=== PATIENT | male | born 1975 | race Caucasian/White ===

== ENCOUNTER 2017-10-06 12:10 | Observation (INO) ==
[2017-10-06] MEDS ORDERED: METOPROLOL TARTRATE 5 MG/5 ML VIAL IV STA (12:43)
[2017-10-06] MEDS ORDERED: ASPIRIN 325 MG TABLET PO STA (12:43)
[2017-10-06 13:00] LABS: Basophils # 0.2 10*3/uL (0.0-0.2); Basophils % 1.6 % (0.0-0.8); Eosinophils # 0.7 10*3/uL (0.0-0.87); Eosinophils % 6.8 % (0.00-10.9); Hematocrit 43.3 VOL% (42.0-52.0); Hemoglobin 14.8 GM/DL (14.0-18.0); Immature Granulocytes % 0.3 %; Immature Granulocytes Absolute 0.03 #; Lymphocytes # 4.9 10*3/uL (1.4-4.0); Lymphocytes % 45.9 % (21.2-54.2); Mean Corpuscular HGB Conc 34.2 GM/DL (32-36); Mean Corpuscular Hemoglobin 30 PG (27-34); Mean Corpuscular Volume 86.9 FL (87-102); Mean Platelet Volume 10.3 FL (9.6-12.0); Monocytes % 9.1 % (1.7-12.7); Neutrophils # 3.9 10*3/uL (1.4-7.4); Neutrophils % 36.3 % (38.7-73.9); Platelet Count 381 T/CUMM (130-400); Red Blood Count 4.98 MC/CUMM (3.8-5.5); Red Cell Distribution Width 13.1 % (9.3-17.3); White Blood Count 10.8 T/CUMM (4-12)
[2017-10-06 13:03] LABS: PT Patient Result 10.4 SECS; Partial Thromboplastin Time 25.7 SECS (0-40)
[2017-10-06 13:09] LABS: Albumin 4.3 G/DL (3.4-5.0); Bilirubin,Total 0.6 MG/DL (0.2-1.0); Calcium 8.9 MG/DL (8.5-10.1); Osmolality,Calculated 279.4 MOS/KG (273-304); Potassium 3.8 MMOL/L (3.5-5.1); Total Protein 7.6 G/DL (6.4-8.3)
[2017-10-06 13:32] LABS: Eosinophils 6 % (0-10); Lymphocytes 44 % (20-55); Segmented Neutrophils 41 % (50-85); Total Cells Counted 100
[2017-10-06] MEDS ORDERED: guaiFENesin/DM ER 600-30 MG TABLET PO PRN (13:35)
[2017-10-06] MEDS ORDERED: ACETAMINOPHEN 325 MG TABLET PO PRN (13:35)
[2017-10-06] MEDS ORDERED: ONDANSETRON 4 MG/2 ML VIAL IV PRN (13:35)
[2017-10-06] MEDS ORDERED: diphenhydrAMINE CAP 25 MG CAPSULE PO PRN (13:35)
[2017-10-06] MEDS ORDERED: ENOXAPARIN 40 MG/0.4 ML SYRINGE SUBCUT SCH (14:00)
[2017-10-06] MEDS ORDERED: MELOXICAM 7.5 MG TABLET PO PRN (15:00)
[2017-10-06] MEDS ORDERED: CARVEDILOL 3.125 MG TABLET PO SCH (17:00)
[2017-10-06] MEDS: SODIUM CHLORIDE 0.45% 1,000 ML IV SCH (17:16)
[2017-10-06] MEDS: ENOXAPARIN 120 MG/0.8 ML SYRINGE SUBCUT SCH (17:17)
[2017-10-06] MEDS: PANTOPRAZOLE 40 MG TABLET PO SCH (17:17)
[2017-10-06] MEDS: CARVEDILOL 6.25 MG TABLET PO SCH (17:17)
[2017-10-07] MEDS: SODIUM CHLORIDE 0.45% 1,000 ML IV SCH ×3 (03:22→13:21)
[2017-10-07 03:33] LABS: Basophils # 0.2 10*3/uL (0.0-0.2); Basophils % 1.3 % (0.0-0.8); Eosinophils # 0.8 10*3/uL (0.0-0.87); Eosinophils % 6.8 % (0.00-10.9); Hematocrit 40.9 VOL% (42.0-52.0); Hemoglobin 14.4 GM/DL (14.0-18.0); Immature Granulocytes % 0.3 %; Immature Granulocytes Absolute 0.04 #; Lymphocytes # 6.2 10*3/uL (1.4-4.0); Lymphocytes % 51.8 % (21.2-54.2); Mean Corpuscular HGB Conc 35.2 GM/DL (32-36); Mean Corpuscular Hemoglobin 30 PG (27-34); Mean Corpuscular Volume 86.3 FL (87-102); Mean Platelet Volume 10.2 FL (9.6-12.0); Monocytes # 0.9 10*3/uL (0.11-0.8); Monocytes % 7.7 % (1.7-12.7); Neutrophils # 3.8 10*3/uL (1.4-7.4); Neutrophils % 32.1 % (38.7-73.9); Platelet Count 343 T/CUMM (130-400); Red Blood Count 4.74 MC/CUMM (3.8-5.5); Red Cell Distribution Width 12.9 % (9.3-17.3)
[2017-10-07 04:07] LABS: Calcium 8.4 MG/DL (8.5-10.1); Osmolality,Calculated 280.4 MOS/KG (273-304); Potassium 3.5 MMOL/L (3.5-5.1); Risk Ratio 6.36; Thyroid Stimulating Hormone 1.85 uIU/ml (0.358-3.74); VLDL CHOLESTEROL 126.6 MG/DL
[2017-10-07 04:43] LABS: Band Neutrophils 7 % (0-10); Eosinophils 6 % (0-10); Lymphocytes 31 % (20-55); Segmented Neutrophils 51 % (50-85); Total Cells Counted 100
[2017-10-07] MEDS: ENOXAPARIN 120 MG/0.8 ML SYRINGE SUBCUT SCH ×2 (05:59→17:01)
[2017-10-07] MEDS: hydroCHLOROthiazide 25 MG TABLET PO SCH (08:51)
[2017-10-07] MEDS: MULTIVITAMIN (CENTRUM) TABLET PO SCH (08:52)
[2017-10-07] MEDS: CARVEDILOL 6.25 MG TABLET PO SCH ×2 (08:52→17:01)
[2017-10-07] MEDS: LOSARTAN 25 MG TABLET PO SCH (08:52)
[2017-10-07] MEDS: TOPIRAMATE 100 MG TABLET PO SCH (08:52)
[2017-10-07] MEDS: FLUTICASONE 50 MCG NASAL SPRAY 16 GM BOTTLE BOTH NARES SCH (08:52)
[2017-10-07] MEDS: ASPIRIN EC 81 MG TABLET PO SCH (08:52)
[2017-10-07] MEDS: AZELASTINE NASAL 137 MCG/SPRAY 30 ML BOTTLE BOTH NARES SCH (08:52)
[2017-10-07] MEDS: amLODIPine 5 MG TABLET PO SCH (08:52)
[2017-10-07] MEDS: PANTOPRAZOLE 40 MG TABLET PO SCH (08:52)
[2017-10-07] MEDS ORDERED: amLODIPine 10 MG TABLET PO SCH (09:00)
[2017-10-07] MEDS ORDERED: CETIRIZINE 10 MG TABLET PO SCH (09:00)
[2017-10-07] MEDS ORDERED: MAGNESIUM SULF RIDER 2 GM in PREMIX 1 EACH IV PRN (09:16)
[2017-10-07] MEDS ORDERED: POTASSIUM CHLORIDE RIDER 10 MEQ in PREMIX 1 EACH IV PRN (09:16)
[2017-10-07 10:13] LABS: Apearance,Urine CLEAR (Clear); Bacteria,Urine Occasional /HPF (Few); Bilirubin,Urine Negative (Negative); Blood, Urine Negative (Negative); Glucose,Urine (UA) Negative (Negative); Ketones,Urine Negative (Negative); Nitrite,Urine Negative (Negative); Protein,Urine Negative; Urine Color Yellow (Yellow); Urine Specific Gravity 1.006 (1.001-1.035); Urine Urobilinogen < 2.0 EU/DL (0.2-1.0)
[2017-10-07] MEDS ORDERED: PRAVASTATIN 20 MG TABLET PO SCH (10:30)
[2017-10-07] MEDS: OMEGA 3 ACID ETHYL ESTERS 1 GM CAPSULE PO SCH (10:50)
[2017-10-07] MEDS: PRAVASTATIN 40 MG TABLET PO SCH (10:50)
[2017-10-08] MEDS: SODIUM CHLORIDE 0.45% 1,000 ML IV SCH (01:54)
[2017-10-08 06:26] LABS: Basophils # 0.1 10*3/uL (0.0-0.2); Basophils % 1.3 % (0.0-0.8); Eosinophils # 0.8 10*3/uL (0.0-0.87); Eosinophils % 7.2 % (0.00-10.9); Hematocrit 42.3 VOL% (42.0-52.0); Hemoglobin 14.6 GM/DL (14.0-18.0); Immature Granulocytes % 0.4 %; Immature Granulocytes Absolute 0.04 #; Lymphocytes # 5.2 10*3/uL (1.4-4.0); Lymphocytes % 48.2 % (21.2-54.2); Mean Corpuscular HGB Conc 34.5 GM/DL (32-36); Mean Corpuscular Hemoglobin 30 PG (27-34); Mean Corpuscular Volume 87.9 FL (87-102); Mean Platelet Volume 10.4 FL (9.6-12.0); Monocytes % 9.3 % (1.7-12.7); Neutrophils # 3.6 10*3/uL (1.4-7.4); Neutrophils % 33.6 % (38.7-73.9); Platelet Count 346 T/CUMM (130-400); Red Blood Count 4.81 MC/CUMM (3.8-5.5); Red Cell Distribution Width 12.9 % (9.3-17.3); White Blood Count 10.7 T/CUMM (4-12)
[2017-10-08 06:43] LABS: Calcium 8.6 MG/DL (8.5-10.1); Osmolality,Calculated 279.4 MOS/KG (273-304); Potassium 3.7 MMOL/L (3.5-5.1)
[2017-10-08 06:49] LABS: Band Neutrophils 2 % (0-10); Eosinophils 10 % (0-10); Hypochromasia 1+; Lymphocytes 40 % (20-55); Platelet Estimate Adequate; Segmented Neutrophils 43 % (50-85); Total Cells Counted 100
[2017-10-08 06:50] LABS: Atypical Lymphocytes Few
[2017-10-08] MEDS ORDERED: DIAZEPAM 5 MG TABLET PO ONE (07:00)
[2017-10-08] MEDS ORDERED: diphenhydrAMINE CAP 25 MG CAPSULE PO ONE (07:00)
[2017-10-08] MEDS: ENOXAPARIN 120 MG/0.8 ML SYRINGE SUBCUT SCH (07:07)
[2017-10-08] MEDS: LOSARTAN 25 MG TABLET PO SCH (09:03)
[2017-10-08] MEDS: hydroCHLOROthiazide 25 MG TABLET PO SCH (09:03)
[2017-10-08] MEDS: MULTIVITAMIN (CENTRUM) TABLET PO SCH (09:03)
[2017-10-08] MEDS: ASPIRIN EC 81 MG TABLET PO SCH (09:03)
[2017-10-08] MEDS: PRAVASTATIN 40 MG TABLET PO SCH (09:04)
[2017-10-08] MEDS: OMEGA 3 ACID ETHYL ESTERS 1 GM CAPSULE PO SCH (09:04)
[2017-10-08] MEDS: PANTOPRAZOLE 40 MG TABLET PO SCH (09:04)
[2017-10-08] MEDS: amLODIPine 5 MG TABLET PO SCH (09:04)
[2017-10-08] MEDS: CARVEDILOL 6.25 MG TABLET PO SCH (09:05)
[2017-10-08] MEDS ORDERED: HEPARIN/NACL 0.9% 2 UNITS/ML 1,000 ML IV ONE (09:25)
[2017-10-08] MEDS: TOPIRAMATE 100 MG TABLET PO SCH (09:43)
[2017-10-08] MEDS ORDERED: LIDOCAINE 1% 20 ML VIAL ONE (10:03)
[2017-10-08] MEDS ORDERED: fentaNYL 100 MCG/2 ML VIAL ONE (10:06)
[2017-10-08] MEDS ORDERED: VERAPAMIL 5 MG/2 ML VIAL ONE (10:06)
[2017-10-08] MEDS ORDERED: NITROGLYCERIN DRIP 50 MG/250 ML BOTTLE IV ONE (10:06)
[2017-10-08] MEDS ORDERED: MIDAZOLAM 2 MG/2 ML VIAL ONE ×2 (10:06→10:45)
[2017-10-08] MEDS ORDERED: ENOXAPARIN 60 MG/0.6 ML SYRINGE ONE (10:36)
[2017-10-08] MEDS ORDERED: LIDOCAINE 1%/EPI INJ 20 ML VIAL ONE (10:44)
[2017-10-08] MEDS: FLUTICASONE 50 MCG NASAL SPRAY 16 GM BOTTLE BOTH NARES SCH (14:24)
[2017-10-08] MEDS: AZELASTINE NASAL 137 MCG/SPRAY 30 ML BOTTLE BOTH NARES SCH (14:24)
[2017-10-08 15:43] VITALS: BP 135/84
== END 2017-10-08 15:45 | disposition home or self-care (01) ==
LOC: N.ED 12:10 → N.EDINP 12:10 → N.2E 14:15
PROVIDERS: ADMIT Internal Medicine; ATTEND Internal Medicine
PROC: CLCCHCL (ICD-10-PCS; 2017-10-08 10:45)